=== PATIENT | female | born 1935 | race Caucasian/White ===

== ENCOUNTER 2017-10-21 10:52 | Day surgery (SDC) | payer MEDICARE, OTHER ==
[~2017-10-21 10:52] MED LIST: CYCLOPENTOLATE 0.2%/PHENYLEPHRINE 1% OPH SOLN 2 ML OD PRN; MIDAZOLAM 2 MG/2 ML INJ ONE; TROPICAMIDE 1% OPH SOLN 3 ML OD PRN
[2017-10-21] MEDS: MOXIFLOXACIN HCL 0.5% OPH SOLN 3 ML OD PRN ×4 (11:15→12:08)
[2017-10-21] MEDS: TETRACAINE HCL 0.5% OPH SOLN 2 ML OD PRN ×3 (11:15→11:49)
[2017-10-21] MEDS ORDERED: DIPHENHYDRAMINE HCL 50 MG/ML VIAL ONE (11:33)
[2017-10-21] MEDS ORDERED: METHYLPREDNISOLONE INJ 125 MG/2 ML SDV ONE (11:33)
[2017-10-21] MEDS ORDERED: MIDAZOLAM 2 MG/2 ML INJ ONE (11:34)
[2017-10-21] MEDS ORDERED: FENTANYL CITRATE INJ/PF 100 MCG/2 ML AMPUL ONE (11:34)
[2017-10-21] MEDS: BUPIVACAINE HCL 0.75% INJ/PF (7.5 MG/1 ML) 10 ML SDV OD PRN ×2 (11:40)
[2017-10-21] MEDS: LIDOCAINE 4% INJ/PF (40 MG/ML) 5 ML AMPUL OD PRN ×2 (11:40)
[2017-10-21] MEDS: EPINEPHRINE INJ/PF 1 MG/1 ML AMPULE ONE ×2 (11:54)
[2017-10-21] MEDS: LIDOCAINE 1% INJ-PF (10 MG/ML) 30 ML SDV ONE ×2 (11:54)
[2017-10-21] MEDS: CHONDR SU A NA/HYALUR INTRAOC KIT (SURGICARE) ONE ×2 (11:54)
--- NOTE | 2017-10-21 12:23 | SURGICARE DISCHARGE SUMMARY E ---
[facility]urg[facility]are Discharge Summary NAME: MADAY NOLASCO AGE: 82Y ADMITTED: 10/21/2017 DISCHARGED: 10/21/2017 ADMISSION DIAGNOSIS: CATARACT, RIGHT EYE. DISCHARGE DIAGNOSIS: CATARACT, RIGHT EYE. HOSPITAL COURSE: The patient is an 82-year-old lady who underwent uneventful cataract extraction with intraocular lens implant, right eye, on 10/21/2017. She will be discharged to home. DISCHARGE INSTRUCTIONS: She is instructed to resume preoperative medications; to take Tylenol as needed for discomfort; to keep her eye shielded; to use Vigamox, Acuvail, and Durezol at 3:00 p.m. and 8:00 p.m.; and to follow up in my office in 1 day. DICTATING PHYSICIAN: JULIANE MAZARIEGOS M.D. [id number] PHY#: [id number] ID: [id number] JOB#: [id number] ACCT: [id number] cc:JULIANE MAZARIEGOS M.D. >
--- NOTE | 2017-10-21 12:23 | SURGICARE OPERATIVE REPORT E ---
[facility] Oper[facility] NAME: MADAY NOLASCO AGE: 82Y DATE OF SURGERY: 10/21/2017 ROOM: PREOPERATIVE DIAGNOSIS: CATARACT, RIGHT EYE. POSTOPERATIVE DIAGNOSIS: CATARACT, RIGHT EYE. PROCEDURE PERFORMED: PHACOEMULSIFICATION WITH POSTERIOR CHAMBER INTRAOCULAR LENS, RIGHT EYE. SURGEON: JULIANE MAZARIEGOS M.D. ANESTHESIA: TOPICAL W/MAC. DESCRIPTION OF PROCEDURE: The patient was brought to the operating room and placed on the operative table. Following tetracaine drops, topical anesthesia was administered. This consisted of instrument wipe pledgets soaked in a solution of 4% Xylocaine mixed with 0.75% Marcaine in a 1:2 ratio. A 2 x 1 cm pledget was placed in the superior fornix. A 1 x 1 cm pledget was placed in the inferior fornix. The eye was patched shut for 5 minutes. The patch was removed. The eye was sterilely prepped and draped in the usual manner. Lid speculum was placed in the eye. The pledgets were removed, 4-0 black silk sutures were placed around the superior and the inferior rectus muscles to be used as traction. A conjunctival peritomy was made at the 10 o'clock position. Hemostasis was obtained with bipolar cautery. A posterior limbal groove was created using a crescent knife and dissected anteriorly towards the cornea. A sharp point blade was used to create a paracentesis site at the 2 o'clock position. A 2.4 mm keratome was used to enter the anterior chamber through the groove. Viscoelastic was injected into the anterior chamber. An anterior capsulotomy was performed using Utrata forceps in a capsulorrhexis fashion. Hydrodissection and hydrodelineation were performed. Phacoemulsification was performed in bvlukd-yze-hkzvvty technique. A total of 1 minute of total phaco time was used. Following this, the I/A unit was used to remove residual cortex. Viscoelastic was injected into the capsular bag. Intraocular lens Model [id number], 20.5 diopters, serial number [id number], was placed in the capsular bag. The I/A unit was used to remove residual viscoelastic. The wound was seen to be watertight under high and low pressure, and no sutures were placed. The intraocular lens was well centered. The pressure was adjusted in the eye to normal pressure. The 4-0 black silk sutures and lid speculum were removed. The eye was shielded. No Besivance was used. A drop of Vigamox and Durezol were placed in the eye at the end of the surgery. The patient tolerated the procedure well and was sent to the recovery room in good condition. DICTATING PHYSICIAN: JULIANE MAZARIEGOS M.D. [id number] PHY#: [id number] ID: [id number] JOB#: [id number] ACCT: [id number] cc:JULIANE MAZARIEGOS M.D. >
== END 2017-10-21 13:12 | disposition home or self-care (01) ==
LOC: SC 10:52
PROVIDERS: ATTEND Ophthalmology
PROC: 08RJ3JZ Replacement of Right Lens with Synthetic Substitute, Percutaneous Approach (ICD-10-PCS; principal; 2017-10-21 12:30)
DX: H25.811 Combined forms of age-related cataract, right eye (principal); H10.213 Acute toxic conjunctivitis, bilateral; I10 Essential (primary) hypertension; Z79.899 Other long term (current) drug therapy; Z88.0 Allergy status to penicillin
CPT/HCPCS: 66984; V2632; J2250; J3490 ×4; J1200; J0171; J3010; J2930; 142

== ENCOUNTER 2018-05-26 11:23 | Inpatient (IN) | payer MEDICARE, OTHER ==
[2018-05-26] MEDS ORDERED: ONDANSETRON HCL INJ/PF 4 MG/2 ML SDV IV ONE ×2 (11:38→15:21)
[2018-05-26] MEDS ORDERED: FENTANYL CITRATE INJ/PF 100 MCG/2 ML AMPUL IV ONE ×2 (11:38→12:43)
[2018-05-26] MEDS: MORPHINE SULFATE 10 MG/ML INJ IV SCH ×4 (11:55→22:21)
[2018-05-26 12:42] LABS: ABSOLUTE LYMPHOCYTES (AUTO) 0.6 10^3/uL (0.5-4.7); ABSOLUTE MONOCYTES (AUTO) 0.3 10^3/uL (0.1-1.4); ABSOLUTE NEUT (AUTO) 3.7 10^3/uL (1.7-8.2); BASOPHILS % (AUTO) 0.8 % (0-2); HEMATOCRIT 36.4 % (36.0-47.0); HEMOGLOBIN 12.7 g/dL (12.0-15.5); LYMPHOCYTES % (AUTO) 12.9 % (13-45); MEAN CORPUSCULAR HEMOGLOBIN 31.9 pg (27.0-33.4); MEAN CORPUSCULAR VOLUME 91 fl (80-97); MONOCYTES % (AUTO) 5.8 % (3-13); PLATELET COUNT 271 10^3/uL (150-450); RED BLOOD COUNT 3.99 10^6/uL (3.72-5.28); RED CELL DISTRIBUTION WIDTH 12.5 % (11.5-14.0); SEGMENTED NEUTROPHILS % (AUTO) 79.5 % (42-78); TOTAL CELLS COUNTED % (AUTO) 100 %; WHITE BLOOD COUNT 4.7 10^3/uL (4.0-10.5)
--- NOTE | 2018-05-26 12:49 | ER Document Report ---
ED Extremity Problem, Lower <RENETTA BARTLETT - Last Filed: 05/26/18 13:18> - General Mode of Arrival: Medic Information source: Patient TRAVEL OUTSIDE OF THE [place] IN LAST 30 DAYS: No <VAZQUEZ GONZALEZ - Last Filed: 05/29/18 22:34> - General Chief Complaint: Fall Injury Stated Complaint: FALL/RIGHT HIP PAIN Time Seen by Provider: 05/26/18 11:32 Notes: 83-year-old female that presents to the emergency department today after a fall that occurred prior to arrival. Patient states she tripped over her shoe and fell on her driveway. Patient was unable to get up and had to be carried inside by a bystander that saw her as he was driving by. Patient's right lower extremity is shortened and internally rotated. (VAZQUEZ GONZALEZ) - Related Data Allergies/Adverse Reactions: Penicillins Allergy (Verified 10/17/17 11:14) Generalized rash Past Medical History - General Information source: Patient - Social History Smoking Status: Never Smoker Cigarette use (# per day): No Chew tobacco use (# tins/day): No Frequency of alcohol use: None Drug Abuse: None Lives with: Family Family History: Reviewed & Not Pertinent Patient has suicidal ideation: No Patient has homicidal ideation: No - Past Medical History Cardiac Medical History: Reports: Hx Hypertension Musculoskeletal Medical History: Reports Hx Arthritis - left hip Past Surgical History: Reports: Hx Hysterectomy <VAZQUEZ GONZALEZ - Last Filed: 05/29/18 22:34> Review of Systems - Review of Systems Constitutional: No symptoms reported EENT: No symptoms reported Cardiovascular: No symptoms reported Respiratory: No symptoms reported Gastrointestinal: No symptoms reported Genitourinary: No symptoms reported Female Genitourinary: No symptoms reported Musculoskeletal: See HPI, Joint pain - right hip pain Skin: No symptoms reported Hematologic/Lymphatic: No symptoms reported Neurological/Psychological: No symptoms reported -: Yes All other systems reviewed and negative <VAZQUEZ GONZALEZ - Last Filed: 05/29/18 22:34> Physical Exam <RENETTA BARTLETT - Last Filed: 05/26/18 13:18> <VAZQUEZ GONZALEZ - Last Filed: 05/29/18 22:34> - Vital signs Vitals: Resp Pulse Ox 20 93 05/26/18 11:29 05/26/18 11:29 - Notes Notes: Physical Exam: General: Alert, appears well. HEENT: Normocephalic. Atraumatic. PERRL. Extraocular movements intact. Oropharynx clear. Neck: Supple. Non-tender. Respiratory: No respiratory distress. Clear and equal breath sounds bilaterally. Cardiovascular: Regular rate and rhythm. Abdominal: Normal Inspection. Non-tender. No distension. Normal Bowel Sounds. Back: Non-tender. No deformity or step off. Extremities: Upper extremities: Normal inspection. Normal ROM. Lower extremities: Right lower extremity is shortened and internally rotated. Exquisite tenderness to palpation of right hip. Pelvis is stable. Neurological: Normal cognition. AAOx4. Normal speech. Psychological: Normal affect. Normal Mood. Skin: Warm. Dry. Normal color. (VAZQUEZ GONZALEZ) Course - Laboratory Result Diagrams: 05/26/18 12:14 05/26/18 12:14 - Diagnostic Test Radiology reviewed: Image reviewed, Reports reviewed - Subcapital fracture right hip - EKG Interpretation by Ri EKG shows normal: Sinus rhythm, [place], Intervals, QRS Complexes, ST-T Waves Rate: Normal - 68 Rhythm: NSR <RENETTA BARTLETT - Last Filed: 05/26/18 13:18> - Laboratory Result Diagrams: 05/29/18 08:46 05/28/18 05:44 <VAZQUEZ GONZALEZ - Last Filed: 05/29/18 22:34> - Vital Signs Vital signs: Temp Pulse Resp BP Pulse Ox 98.2 F 85 16 158/71 H 97 05/29/18 20:00 05/29/18 20:00 05/29/18 20:00 05/29/18 20:00 05/29/18 20:00 - Laboratory Laboratory results interpreted by pa: 05/26/18 05/26/18 12:14 12:14 Seg Neutrophils % 79.5 H Lymphocytes % 12.9 L Sodium 131.7 L Chloride 94 L Discharge - Discharge Admitting Provider: Dr. Mancia Unit Admitted: Medical Floor <RENETTA BARTLETT - Last Filed: 05/26/18 13:18> <VAZQUEZ GONZALEZ - Last Filed: 05/29/18 22:34> - Discharge Clinical Impression: Closed right hip fracture Qualifiers: Encounter type: initial encounter Qualified Code(s): S72.001A - Fracture of unspecified part of neck of right femur, initial encounter for closed fracture Condition: Stable Disposition: ADMITTED INPATIENT Scribe Attestation: 05/26/18 13:20 I personally performed the services described in the documentation, reviewed and edited the documentation which was dictated to the scribe in my presence, and it accurately records my words and actions. (RENETTA BARTLETT) Scribe Documentation - Scribe Written by Annie:: Annie Hernandez, 05/26/2018 1415 acting as scribe for :: Alli <VAZQUEZ GONZALEZ - Last Filed: 05/29/18 22:34>
--- NOTE | 2018-05-26 12:52 | RADIOLOGY REPORT (SQ) ---
EXAM DESCRIPTION: HIP RIGHT AP/LATERAL COMPLETED DATE/TIME: 05/26/2018 12:41 pm REASON FOR STUDY: Fall, right hip pain COMPARISON: None. NUMBER OF VIEWS: Two views. TECHNIQUE: AP pelvis and additional frog-leg view of the right hip. LIMITATIONS: Radiopaque artifact from belt buckle over the left hip FINDINGS: MINERALIZATION: Osteoporotic RIGHT HIP: Acute subcapital right femoral neck fracture with varus angulation. LEFT HIP: Artifact from bowel buckle over the left hip. No gross acute fracture PUBIS AND ISCHIUM: No fracture. PELVIS: No fracture. SACRUM: No fracture or dislocation. No worrisome bone lesions. LOWER LUMBAR SPINE: L5-S1 disc space loss of height with sclerosis right L5-S1 facet joint SOFT TISSUES: No findings. OTHER: No other significant finding. IMPRESSION: Acute subcapital femoral neck fracture right hip, with varus angulation TECHNICAL DOCUMENTATION: JOB ID: [id number] [employer]- All Rights Reserved Reading location - IP/workstation name: [email or web address]
--- NOTE | 2018-05-26 12:52 | EKG REPORT ---
SEVERITY:- NORMAL ECG - SINUS RHYTHM : Confirmed by: Dakota Carroll MD 26-May-2018 12:51:45
[2018-05-26] MEDS ORDERED: HYDROMORPHONE HCL INJ/PF 2 MG/ML AMPULE IV ONE ×2 (13:11→15:20)
[2018-05-26] MEDS ORDERED: NORMAL SALINE 1000 ML 1,000 ML IV ONE (13:12)
[2018-05-26 13:17] LABS: ALANINE AMINOTRANSFERASE 21 U/L (9-52); ALBUMIN 3.8 g/dL (3.5-5.0); ALKALINE PHOSPHATASE 59 U/L (38-126); ANION GAP 11 (5-19); ASPARTATE AMINO TRANSFERASE 33 U/L (14-36); BILIRUBIN,DIRECT 0.3 mg/dL (0.0-0.4); BILIRUBIN,TOTAL 0.7 mg/dL (0.2-1.3); BLOOD UREA NITROGEN 12 mg/dL (7-20); CALCIUM 9.2 mg/dL (8.4-10.2); CARBON DIOXIDE 27 mmol/L (22-30); CHLORIDE 94 mmol/L (98-107); CREATINE KINASE 64 U/L (30-135); GLUCOSE 101 mg/dL (75-110); POTASSIUM 3.8 mmol/L (3.6-5.0); SODIUM 131.7 mmol/L (137-145); TOTAL PROTEIN 7.1 g/dL (6.3-8.2)
[2018-05-26 13:20] LABS: INTERNATIONAL RATION (INR) 0.96; PROTHROMBIN TIME 13.3 SEC (11.4-15.4)
[2018-05-26 14:09] LABS: APPEARANCE,URINE CLEAR; BILIRUBIN,URINE NEGATIVE (NEGATIVE); COLOR,URINE YELLOW; GLUCOSE, URINE NEGATIVE (NEGATIVE); KETONES,URINE TRACE mg/dL (NEGATIVE); LEUKOCYTE ESTERASE,URINE NEGATIVE (NEGATIVE); NITRITE,URINE NEGATIVE (NEGATIVE); PROTEIN,URINE NEGATIVE (NEGATIVE); URINE SPECIFIC GRAVITY 1.013
--- NOTE | 2018-05-26 17:18 | PDOC H&P ---
History of Present Illness Admission Date/PCP: 05/26/18 13:20 IVANA ORTEGA MD History of Present Illness: MADAY NOLASCO is a 83 year old female 83-year-old white female with noncontributory as past medical history who slipped and fell at home was unable to weight-bear on the right lower extremity. She was brought to the emergency room where a displaced right femoral neck fracture was diagnosed. She is admitted to the orthopedic service for fracture management. Past Medical History Cardiac Medical History: Reports: Hypertension Denies: Myocardial Infarction Pulmonary Medical History: Denies: Asthma Neurological Medical History: Denies: Seizures GI Medical History: Denies: Hepatitis, Hiatal Hernia Musculoskeltal Medical History: Reports: Arthritis - left hip Psychiatric Medical History: Denies: Depression Hematology: Denies: Anemia, Sickle Cell Disease Past Surgical History Past Surgical History: Reports: Hysterectomy Denies: Amputation, Mastectomy, Pacemaker Social History Information Source: Patient, [facility], [facility] Records Lives with: Family Smoking Status: Former Smoker Frequency of Alcohol Use: None Hx Recreational Drug Use: No Drugs: None Hx Prescription Drug Abuse: No - Advance Directive Resuscitation Status: Full Code Family History Parental Family History Reviewed: No Children Family History Reviewed: No Sibling(s) Family History Reviewed.: No Medication/Allergy Home Medications: Glucosam/Chond/Hyalu/Cf Borate [Move Free Joint Health Tablet] 1 each PO DAILY 05/26/18 Valsartan/Hydrochlorothiazide [Valsartan-Hctz 80-12.5 mg Tab] 1 each PO QAM 01/07 Vit C/Vit E/Lutein/Min/[place]-3 [Ocuvite Softgel] 1 each PO DAILY 05/26/18 Allergies/Adverse Reactions: Penicillins Allergy (Verified 10/17/17 11:14) Generalized rash Review of Systems All systems: as per PMH Physical Exam Vital Signs: Temp Pulse Resp BP Pulse Ox 36.5 C 86 12 149/63 H 95 05/26/18 15:56 05/26/18 15:56 05/26/18 15:56 05/26/18 15:56 05/26/18 15:56 Intake & Output 05/25/18 05/26/18 05/27/18 06:59 06:59 06:59 Intake Total 1000 Balance 1000 Weight 64.4 kg Physical Exam: Patient is an elderly white female lying in a hospital bed accompanied by 2 daughters. She is alert and oriented, conversant and appropriate. General appearance: PRESENT: no acute distress, mild distress Head exam: PRESENT: normocephalic Respiratory exam: PRESENT: unlabored Cardiovascular exam: PRESENT: RRR Pulses: PRESENT: +1 pedal pulses bilateral Rectal exam: PRESENT: deferred Extremities exam: PRESENT: other - Right lower extremity is shortened and flexed. Distal neurovascular examination is intact. Passive range of motion is not assessed. Neurological exam: PRESENT: alert, awake, oriented to person, oriented to place , oriented to time, oriented to situation. ABSENT: motor sensory deficit Psychiatric exam: PRESENT: appropriate affect, normal mood. ABSENT: homicidal ideation, suicidal ideation Skin exam: PRESENT: dry, intact, warm. ABSENT: cyanosis, rash Results Laboratory Results: 05/26/18 13:27 Urine Color YELLOW Urine Appearance CLEAR Urine pH 7.0 Ur Specific [place] 1.013 Urine Protein NEGATIVE Urine Glucose (UA) NEGATIVE Urine Ketones TRACE H Urine Blood NEGATIVE Urine Nitrite NEGATIVE Ur Leukocyte Esterase NEGATIVE Urine WBC (Auto) 1 Urine RBC (Auto) 0 Impressions: Hip/Pelvis X-Ray 05/26/18 11:38 IMPRESSION: Acute subcapital femoral neck fracture right hip, with varus angulation Status: Imported from PACS Assessment & Plan - Diagnosis (1) Closed right hip fracture Qualifiers: Encounter type: initial encounter Qualified Code(s): S72.001A - Fracture of unspecified part of neck of right femur, initial encounter for closed fracture Is this a current diagnosis for this admission?: Yes Plan: 83-year-old white female with noncontributory past medical history who is fallen and has sustained a displaced right femoral neck fracture. Patient was best served with a right proximal femoral hemiarthroplasty. Plan to proceed with this tomorrow. Patient and her daughters are aware that there are risks and benefits of surgery. The risks include infection, arthrofibrosis, deep venous thrombosis, neurovascular injury, leg length inequality, and dislocation. - Time Time Spent: 50 to 70 Minutes Anticipated discharge: Home with Homehealth Within: Other
[2018-05-26] MEDS ORDERED: OXYCODONE HCL IR 5 MG TABLET PO PRN (17:48)
[2018-05-26] MEDS ORDERED: ONDANSETRON 4 MG TAB.RAPDIS PO PRN (17:48)
[2018-05-27] MEDS ORDERED: RINGERS SOLUTION,LACTATED 1,000 ML IV PRN (00:01)
[2018-05-27] MEDS: MORPHINE SULFATE 10 MG/ML INJ IV SCH ×10 (02:33→22:41)
[2018-05-27] MEDS ORDERED: VANCOMYCIN HCL 1,000 MG in DEXTROSE 5%-WATER 250 ML IV PRN (05:00)
[2018-05-27] MEDS ORDERED: TRANEXAMIC ACID INJ/PF 1,000 MG/10 ML SDV IV PRN (05:00)
[2018-05-27] MEDS ORDERED: BUPIVACAINE INJ/PF LIPOSOME/PF 266 MG/20 ML SDV ONE ×2 (08:09→09:06)
[2018-05-27] MEDS ORDERED: THROMBIN (BOVINE) 5000 UNIT EPITAXIS KIT ONE (08:09)
[2018-05-27] MEDS ORDERED: THROMBIN (BOVINE) TOPICAL 20000 UNIT VIAL ONE (08:09)
[2018-05-27] MEDS ORDERED: BUPIVACAINE HCL/DEX-WATER/PF 15 MG/2 ML AMPULE ONE (08:44)
[2018-05-27] MEDS ORDERED: MIDAZOLAM 2 MG/2 ML INJ ONE ×2 (08:44→10:35)
[2018-05-27] MEDS ORDERED: EPHEDRINE SULFATE INJ 50 MG/1 ML AMPULE ONE (08:45)
[2018-05-27] MEDS ORDERED: PROPOFOL INJ 200 MG/20 ML VIAL IV ONE (08:45)
[2018-05-27] MEDS ORDERED: ONDANSETRON HCL INJ/PF 4 MG/2 ML SDV ONE (08:45)
[2018-05-27] MEDS ORDERED: TRANEXAMIC ACID INJ/PF 1,000 MG/10 ML SDV IV ONE ×2 (09:26→12:30)
[2018-05-27] MEDS ORDERED: DIPHENHYDRAMINE HCL 50 MG/ML VIAL IV PRN ×2 (10:04→10:21)
[2018-05-27] MEDS ORDERED: PROMETHAZINE HCL INJ 25 MG/1 ML VIAL IV PRN (10:04)
[2018-05-27] MEDS ORDERED: FENTANYL CITRATE INJ/PF 100 MCG/2 ML AMPUL IV PRN ×3 (10:04)
[2018-05-27] MEDS ORDERED: ACETAMINOPHEN 325 MG TABLET PO PRN (10:21)
[2018-05-27] MEDS ORDERED: MAG HYDROX/AL HYDROX/SIMETH SUSP 30 ML UDCUP PO PRN (10:21)
[2018-05-27] MEDS ORDERED: MORPHINE SULFATE 10 MG/ML INJ IV PRN ×3 (10:21)
[2018-05-27] MEDS ORDERED: OXYCODONE HCL IR 5 MG TABLET PO PRN (10:21)
[2018-05-27] MEDS ORDERED: MORPHINE SULFATE 10 MG/ML INJ IM PRN (10:21)
[2018-05-27] MEDS ORDERED: ONDANSETRON 4 MG TAB.RAPDIS PO PRN (10:21)
[2018-05-27] MEDS ORDERED: ZOLPIDEM TARTRATE 5 MG TABLET PO PRN (10:21)
--- NOTE | 2018-05-27 10:21 | Operative Report ---
Operative Report DATE OF SURGERY: 05/27/18 PREOPERATIVE DIAGNOSIS: Right femoral neck fracture OPERATION: Right proximal femoral hemiarthroplasty SURGEON: ABIGAIL ESPOSITO ANESTHESIA: Spinal TISSUE REMOVED OR ALTERED: Femoral head to pathology ESTIMATED BLOOD LOSS: 50 PROCEDURE: With the patient in a left lateral decubitus position the right lower extremity hindquarter prepped and draped in a sterile fashion. A curvilinear incision made over the greater trochanter a posterior approach the hip was taken. The femur was retracted anteriorly and underlying femoral neck and head are retrieved using a corkscrew. The femoral head was measured and noted to be 45 millimeters. Attention is now turned to the femur. Access is gained to the femoral canal using a box osteotome to the piriformis fossa. The femur is then prepared using a series of tapered broaches until a number 5 [place] Accolade 2 broach is seated. A trial reduction was now performed using a 45 head and standard neck. Leg length was restored and there is excellent anterior posterior stability. A decision was made to proceed with this construct. All trial implants were removed. The final number 5 femoral stem is impacted into the canal. The standard neck is impacted onto the trunnion. Final unipolar head 45 millimeters is impacted onto the neck. The hip was reduced. The wound is copiously irrigated with pulsed lavage. A subsequent closed in layers using Vicryl and jose juan. A sterile dressing is applied. The patient was returned to the recovery room in satisfactory condition.
[2018-05-27] MEDS ORDERED: KETAMINE HCL INJ 500 MG/10 ML VIAL ONE (10:35)
--- NOTE | 2018-05-27 11:10 | RADIOLOGY REPORT (SQ) ---
EXAM DESCRIPTION: PELVIS AP COMPLETED DATE/TIME: 05/27/2018 10:52 am REASON FOR STUDY: Post Op Long Cassette in PACU COMPARISON: None. NUMBER OF VIEWS: One view TECHNIQUE: Digital radiographic images of the pelvis post-procedure LIMITATIONS: None. FINDINGS: BONES: No worrisome or unexpected findings post-procedure. DEVICE: Right total hip arthroplasty. SOFT TISSUES: No worrisome findings. Expected postoperative soft tissue changes. IMPRESSION: SATISFACTORY POSTOPERATIVE PELVIS. TECHNICAL DOCUMENTATION: JOB ID: [id number] [employer]- All Rights Reserved Reading location - IP/workstation name: [email or web address]
[2018-05-27] MEDS ORDERED: IBUPROFEN 800 MG in NORMAL SALINE 250 ML IV SCH (14:00)
[2018-05-27] MEDS: IBUPROFEN 800 MG in DEXTROSE 5%-WATER 250 ML IV SCH ×2 (14:49→22:35)
[2018-05-27] MEDS: RINGERS SOLUTION,LACTATED 1,000 ML IV PRN (16:50)
[2018-05-27] MEDS: SENNOSIDES/DOCUSATE 8.6-50 MG 1 EACH TABLET PO SCH (17:16)
[2018-05-27] MEDS ORDERED: VANCOMYCIN HCL 1,000 MG in DEXTROSE 5%-WATER 250 ML IV ONE (22:00)
[2018-05-27] MEDS ORDERED: OXYCODONE HCL SR 10 MG TABLET PO SCH (22:00)
[2018-05-28] MEDS: MORPHINE SULFATE 10 MG/ML INJ IV SCH ×11 (00:32→22:21)
[2018-05-28 09:23] LABS: HEMATOCRIT 30.3 % (36.0-47.0); HEMOGLOBIN 10.8 g/dL (12.0-15.5); MEAN CORPUSCULAR HEMOGLOBIN 32.9 pg (27.0-33.4); MEAN CORPUSCULAR HGB CONC 35.7 g/dL (32.0-36.0); MEAN CORPUSCULAR VOLUME 92 fl (80-97); PLATELET COUNT 154 10^3/uL (150-450); RED BLOOD COUNT 3.29 10^6/uL (3.72-5.28); RED CELL DISTRIBUTION WIDTH 12.5 % (11.5-14.0)
[2018-05-28 09:29] LABS: ANION GAP 7 (5-19); BLOOD UREA NITROGEN 18 mg/dL (7-20); CALCIUM 8.5 mg/dL (8.4-10.2); CARBON DIOXIDE 26 mmol/L (22-30); CHLORIDE 94 mmol/L (98-107); GLUCOSE 100 mg/dL (75-110); POTASSIUM 3.9 mmol/L (3.6-5.0); SODIUM 127.2 mmol/L (137-145)
[2018-05-28] MEDS: LANSOPRAZOLE 30 MG TAB.RAP.DR PO SCH (09:56)
[2018-05-28] MEDS: IBUPROFEN 800 MG in DEXTROSE 5%-WATER 250 ML IV SCH ×3 (09:56→21:12)
[2018-05-28] MEDS: VALSARTAN 80 MG TABLET PO SCH (11:12)
[2018-05-28] MEDS: ONDANSETRON HCL INJ/PF 4 MG/2 ML SDV IV PRN ×2 (11:12→17:58)
[2018-05-28] MEDS: HYDROCHLOROTHIAZIDE 12.5 MG TABLET PO SCH (11:12)
[2018-05-28] MEDS: SENNOSIDES/DOCUSATE 8.6-50 MG 1 EACH TABLET PO SCH ×2 (11:12→18:01)
[2018-05-28] MEDS: ASPIRIN 81 MG TABLET, ENT COATED PO SCH (11:13)
[2018-05-28] MEDS: PRENATAL VITAMIN W DHA CAPSULE PO SCH (11:13)
[2018-05-28] MEDS: RINGERS SOLUTION,LACTATED 1,000 ML IV PRN ×2 (14:12→21:12)
[2018-05-29] MEDS: MORPHINE SULFATE 10 MG/ML INJ IV SCH ×9 (01:43→22:00)
[2018-05-29] MEDS: RINGERS SOLUTION,LACTATED 1,000 ML IV PRN ×2 (06:23→19:16)
[2018-05-29] MEDS: IBUPROFEN 800 MG in DEXTROSE 5%-WATER 250 ML IV SCH (06:23)
[2018-05-29] MEDS: LANSOPRAZOLE 30 MG TAB.RAP.DR PO SCH (06:26)
--- NOTE | 2018-05-29 06:29 | PDOC PROGRESS REPORT ---
Subjective Progress Note for:: 05/29/18 Reason For Visit: RIGHT FEMORAL NECK FRACTURE 83-year-old white female now postop day 2 from right proximal femoral hemiarthroplasty. Last night's notable for urinary retention and the initiation of in and out urinary catheterization. Physical Exam Vital Signs: Temp Pulse Resp BP Pulse Ox 37.0 C 92 17 142/57 H 91 L 05/28/18 19:50 05/28/18 19:50 05/28/18 19:50 05/28/18 19:50 05/28/18 19:50 Intake & Output 05/27/18 05/28/18 05/29/18 06:59 06:59 06:59 Intake Total 2000 4034 3930 Output Total 200 3250 275 Balance 3778 944 8434 Weight 65.3 kg 69.5 kg General appearance: PRESENT: no acute distress, mild distress Head exam: PRESENT: normocephalic Respiratory exam: PRESENT: other - On nasal prong oxygen Cardiovascular exam: PRESENT: RRR Pulses: PRESENT: +1 pedal pulses bilateral Vascular exam: PRESENT: normal capillary refill GI/Abdominal exam: PRESENT: soft Rectal exam: PRESENT: deferred Extremities exam: PRESENT: other - Right hip dressing clean dry and intact. Leg lengths are equal. Distal neurovascular examination is intact. Neurological exam: PRESENT: alert, awake, oriented to person, oriented to place , oriented to time, oriented to situation. ABSENT: motor sensory deficit Psychiatric exam: PRESENT: appropriate affect, normal mood. ABSENT: homicidal ideation, suicidal ideation Skin exam: PRESENT: dry, intact, warm. ABSENT: cyanosis, rash Results Laboratory Results: 05/28/18 05:44 05/28/18 05:44 05/28/18 05/28/18 05:44 05:44 WBC 9.0 RBC 3.29 L Hgb 10.8 L Hct 30.3 L MCV 92 MCH 32.9 MCHC 35.7 RDW 12.5 Plt Count 154 Sodium 127.2 L Potassium 3.9 Chloride 94 L Carbon Dioxide 26 Anion Gap 7 BUN 18 Creatinine 0.79 Est GFR ( Amer) > 60 Est GFR (Non-Af Amer) > 60 Glucose 100 Calcium 8.5 Impressions: Hip/Pelvis X-Ray 05/26/18 11:38 IMPRESSION: Acute subcapital femoral neck fracture right hip, with varus angulation Pelvis X-Ray 05/27/18 10:23 IMPRESSION: SATISFACTORY POSTOPERATIVE PELVIS. Status: Imported from PACS Assessment & Plan - Diagnosis (1) Closed right hip fracture Qualifiers: Encounter type: initial encounter Qualified Code(s): S72.001A - Fracture of unspecified part of neck of right femur, initial encounter for closed fracture Is this a current diagnosis for this admission?: Yes Plan: Patient progressing with physical therapy ambulating 60 feet yesterday. (2) Urinary retention with incomplete bladder emptying Is this a current diagnosis for this admission?: Yes Plan: Patient developed urinary retention yesterday. She had an indwelling Ordaz catheter prior to that time. This may represent an underlying urinary tract infection. Urine sent for urinalysis. - Time Time Spent with patient: 15-24 minutes Anticipated discharge: Home with Homehealth Within: within 24 hours
[2018-05-29 09:19] LABS: HEMATOCRIT 29.1 % (36.0-47.0); HEMOGLOBIN 10.4 g/dL (12.0-15.5); MEAN CORPUSCULAR HEMOGLOBIN 32.8 pg (27.0-33.4); MEAN CORPUSCULAR HGB CONC 35.8 g/dL (32.0-36.0); MEAN CORPUSCULAR VOLUME 92 fl (80-97); PLATELET COUNT 155 10^3/uL (150-450); RED BLOOD COUNT 3.18 10^6/uL (3.72-5.28); RED CELL DISTRIBUTION WIDTH 12.2 % (11.5-14.0); WHITE BLOOD COUNT 7.4 10^3/uL (4.0-10.5)
[2018-05-29 09:56] LABS: APPEARANCE,URINE CLEAR; BILIRUBIN,URINE NEGATIVE (NEGATIVE); COLOR,URINE YELLOW; GLUCOSE, URINE NEGATIVE (NEGATIVE); KETONES,URINE NEGATIVE (NEGATIVE); LEUKOCYTE ESTERASE,URINE NEGATIVE (NEGATIVE); NITRITE,URINE NEGATIVE (NEGATIVE); PROTEIN,URINE NEGATIVE (NEGATIVE); URINE SPECIFIC GRAVITY 1.006; UROBILINOGEN,URINE NEGATIVE mg/dL (<2.0)
[2018-05-29] MEDS: VALSARTAN 80 MG TABLET PO SCH (10:42)
[2018-05-29] MEDS: ASPIRIN 81 MG TABLET, ENT COATED PO SCH (10:43)
[2018-05-29] MEDS: SENNOSIDES/DOCUSATE 8.6-50 MG 1 EACH TABLET PO SCH ×2 (10:44→19:14)
[2018-05-29] MEDS: PRENATAL VITAMIN W DHA CAPSULE PO SCH (10:44)
[2018-05-29] MEDS: HYDROCHLOROTHIAZIDE 12.5 MG TABLET PO SCH ×2 (10:44→10:52)
[2018-05-30] MEDS: MORPHINE SULFATE 10 MG/ML INJ IV SCH ×5 (02:00→09:27)
[2018-05-30] MEDS: LANSOPRAZOLE 30 MG TAB.RAP.DR PO SCH (06:03)
[2018-05-30 07:10] LABS: HEMATOCRIT 28.2 % (36.0-47.0); HEMOGLOBIN 10.1 g/dL (12.0-15.5); MEAN CORPUSCULAR HEMOGLOBIN 32.6 pg (27.0-33.4); MEAN CORPUSCULAR HGB CONC 35.8 g/dL (32.0-36.0); MEAN CORPUSCULAR VOLUME 91 fl (80-97); PLATELET COUNT 195 10^3/uL (150-450); RED BLOOD COUNT 3.09 10^6/uL (3.72-5.28); RED CELL DISTRIBUTION WIDTH 12.3 % (11.5-14.0); WHITE BLOOD COUNT 6.1 10^3/uL (4.0-10.5)
--- NOTE | 2018-05-30 08:15 | PDOC DISCHARGE SUMMARY ---
General - Admit/Disc Date/PCP Admission Date/Primary Care Provider: 05/26/18 13:20 IVANA ORTEGA MD Discharge Date: 05/30/18 - Discharge Diagnosis (1) Closed right hip fracture Is this a current diagnosis for this admission?: Yes (2) Urinary retention with incomplete bladder emptying Is this a current diagnosis for this admission?: Yes - Additional Information Resuscitation Status: Full Code Discharge Diet: As Tolerated, Regular Discharge Activity: Balance Activity w/Rest, No Driving, No tub bath Home Medications: Glucosam/Chond/Hyalu/Cf Borate [Move Free Joint Health Tablet] 1 each PO DAILY 05/26/18 Valsartan/Hydrochlorothiazide [Valsartan-Hctz 80-12.5 mg Tab] 1 each PO QAM 01/07 Vit C/Vit E/Lutein/Min/[place]-3 [Ocuvite Softgel] 1 each PO DAILY 05/26/18 Aspirin [Ecotrin 81 mg EC Tablet] 81 mg PO DAILY tabec 05/30/18 History of Present Illness History of Present Illness: Patient is an 83-year-old white female with a past medical history significant only for hypertension who presents status post a fall and is diagnosed with a displaced right femoral neck fracture. She is admitted to the orthopedic service for fracture management. Hospital Course Hospital Course: Patient was taken to the operating room under close uncomplicated right hemiarthroplasty. She is returned to floor in satisfactory condition. She is mobilized with physical therapy and weightbearing as tolerated basis. She makes excellent progress in this regard. On postop day 2 there is issues with urinary retention and the patient started in and out cath every 6 as needed. This resolves to the patient subsequently voiding spontaneously. She is ambulating 80 feet. She is ready for discharge home with home health services and DME. Physical Exam Vital Signs: Temp Pulse Resp BP Pulse Ox 37.2 C 86 16 151/71 H 94 05/30/18 00:00 05/30/18 00:00 05/30/18 00:00 05/30/18 00:00 05/30/18 00:00 Intake & Output 05/29/18 05/30/18 05/31/18 06:59 06:59 06:59 Intake Total 4180 1621 Output Total 779 7970 Balance 3405 -829 Weight 69.9 kg 78.1 kg General appearance: PRESENT: no acute distress, mild distress Head exam: PRESENT: normocephalic Respiratory exam: PRESENT: unlabored Cardiovascular exam: PRESENT: RRR Pulses: PRESENT: +1 pedal pulses bilateral Vascular exam: PRESENT: normal capillary refill GI/Abdominal exam: PRESENT: soft Rectal exam: PRESENT: deferred Extremities exam: PRESENT: other - Right hip dressing with a small amount of old drainage. Leg lengths are equal. Distal neurovascular examination is intact. Neurological exam: PRESENT: alert, awake, oriented to person, oriented to place , oriented to time, oriented to situation. ABSENT: motor sensory deficit Psychiatric exam: PRESENT: appropriate affect, normal mood. ABSENT: homicidal ideation, suicidal ideation Skin exam: PRESENT: dry, intact, warm. ABSENT: cyanosis, rash Results Laboratory Results: 05/30/18 05:56 05/28/18 05:44 05/29/18 05/29/18 05/30/18 08:46 09:18 05:56 WBC 7.4 6.1 RBC 3.18 L 3.09 L Hgb 10.4 L 10.1 L Hct 29.1 L 28.2 L MCV 92 91 MCH 32.8 32.6 MCHC 35.8 35.8 RDW 12.2 12.3 Plt Count 155 195 Urine Color YELLOW Urine Appearance CLEAR Urine pH 5.0 Ur Specific [place] 1.006 Urine Protein NEGATIVE Urine Glucose (UA) NEGATIVE Urine Ketones NEGATIVE Urine Blood SMALL H Urine Nitrite NEGATIVE Ur Leukocyte Esterase NEGATIVE Urine WBC (Auto) 3 Urine RBC (Auto) 1 Impressions: Hip/Pelvis X-Ray 05/26/18 11:38 IMPRESSION: Acute subcapital femoral neck fracture right hip, with varus angulation Pelvis X-Ray 05/27/18 10:23 IMPRESSION: SATISFACTORY POSTOPERATIVE PELVIS. Status: Imported from PACS Qualifiers - * PATIENT BEING DISCHARGED WITH ANY OF THE FOLLOWING DIAGNOSIS: No VTE patient discharged on overlapping Therapy?: Yes Plan Discharge Plan: Patient be discharged home with home health services and DME. Follow-up with Dr. Blanche Florez Cameron for surgery in 2 weeks for staple removal. Time Spent: Less than 30 Minutes
[2018-05-30 08:31] VITALS: BP 145/57
[2018-05-30] MEDS: PRENATAL VITAMIN W DHA CAPSULE PO SCH (09:25)
[2018-05-30] MEDS: SENNOSIDES/DOCUSATE 8.6-50 MG 1 EACH TABLET PO SCH (09:25)
[2018-05-30] MEDS: ASPIRIN 81 MG TABLET, ENT COATED PO SCH (09:25)
[2018-05-30] MEDS: HYDROCHLOROTHIAZIDE 12.5 MG TABLET PO SCH (09:26)
[2018-05-30] MEDS: VALSARTAN 80 MG TABLET PO SCH (09:26)
== END 2018-05-30 11:39 | disposition home health service (06) | DRG 470 ==
LOC: ER 11:23 → EH 13:20 → 4S 15:53
PROVIDERS: ADMIT Orthopaedic Surgery; ATTEND Orthopaedic Surgery
PROC: 0SRR0JA Replacement of Right Hip Joint, Femoral Surface with Synthetic Substitute, Uncemented, Open Approach (ICD-10-PCS; principal; 2018-05-27 11:15)
DX: S72.001A Fracture of unspecified part of neck of right femur, initial encounter for closed fracture (principal); W01.0XXA Fall on same level from slipping, tripping and stumbling without subsequent striking against object, initial encounter; Y93.89 Activity, other specified; Y92.008 Other place in unspecified non-institutional (private) residence as the place of occurrence of the external cause; Y99.9 Unspecified external cause status; R33.9 Retention of urine, unspecified; I10 Essential (primary) hypertension; M19.90 Unspecified osteoarthritis, unspecified site; Z79.82 Long term (current) use of aspirin; Z79.899 Other long term (current) drug therapy; Z88.0 Allergy status to penicillin; Z90.710 Acquired absence of both cervix and uterus
CPT/HCPCS: 01210; 36415; 72170; 80048; 80053; 81001; 82550; 84484; 85025; 85027; 85610; 88304; 88311; 93005; 93010; 94799; 96374; 96375; 96376; 99285; C1776; C9290; G8978-GP; G8979-GP; G8987-GO; G8988-GO; J1170; J1741; J2250; J2270; J2405; J2704; J3010; J3370; J3490; J7030; J7060; J7120; S0119

== ENCOUNTER 2019-12-27 08:40 | Inpatient (IN) | payer MEDICARE, OTHER ==
[2019-12-27] MEDS ORDERED: FENTANYL CITRATE INJ/PF 100 MCG/2 ML AMPUL IV ONE (08:56)
[2019-12-27 09:17] LABS: ABSOLUTE EOSINOPHILS # (AUTO) 0.1 10^3/uL (0.0-0.6); ABSOLUTE MONOCYTES (AUTO) 0.2 10^3/uL (0.1-1.4); ABSOLUTE NEUT (AUTO) 1.6 10^3/uL (1.7-8.2); BASOPHILS % (AUTO) 0.8 % (0-2); EOSINOPHILS % (AUTO) 2.6 % (0-6); HEMATOCRIT 36.7 % (36.0-47.0); HEMOGLOBIN 13.1 g/dL (12.0-15.5); LYMPHOCYTES % (AUTO) 34.9 % (13-45); MEAN CORPUSCULAR HEMOGLOBIN 32.5 pg (27.0-33.4); MEAN CORPUSCULAR HGB CONC 35.8 g/dL (32.0-36.0); MEAN CORPUSCULAR VOLUME 91 fl (80-97); MONOCYTES % (AUTO) 7.5 % (3-13); PLATELET COUNT 301 10^3/uL (150-450); RED BLOOD COUNT 4.04 10^6/uL (3.72-5.28); RED CELL DISTRIBUTION WIDTH 12.9 % (11.5-14.0); SEGMENTED NEUTROPHILS % (AUTO) 54.2 % (42-78); TOTAL CELLS COUNTED % (AUTO) 100 %
[2019-12-27 09:21] LABS: INTERNATIONAL RATION (INR) 1.04; PROTHROMBIN TIME 13.6 SEC (11.4-15.4)
--- NOTE | 2019-12-27 09:28 | RADIOLOGY REPORT (SQ) ---
EXAM DESCRIPTION: HIP LEFT AP/LATERAL IMAGES COMPLETED DATE/TIME: 12/27/2019 9:20 am REASON FOR STUDY: fall/pain COMPARISON: None. NUMBER OF VIEWS: Two views. TECHNIQUE: AP and frog-leg view of the left hip. LIMITATIONS: None. FINDINGS: MINERALIZATION: Normal. LEFT HIP: Subcapital left hip fracture with slight impaction. Joint space narrowing with subchondral sclerosis. OPPOSITE HIP: Prior total right hip arthroplasty. SOFT TISSUES: No findings. OTHER: No other significant finding. IMPRESSION: Slightly impacted subcapital left hip fracture. COMMENT: Pelvic fractures are often occult on plain radiographs. If strong clinical suspicion for f racture, recommend CT or MR. TECHNICAL DOCUMENTATION: JOB ID: [id number] [employer]- All Rights Reserved Reading location - IP/workstation name: [email or web address]
[2019-12-27 09:39] LABS: ALKALINE PHOSPHATASE 64 U/L (38-126); ANION GAP 5 (5-19); ASPARTATE AMINO TRANSFERASE 26 U/L (14-36); BILIRUBIN,TOTAL 0.5 mg/dL (0.2-1.3); BLOOD UREA NITROGEN 12 mg/dL (7-20); CALCIUM 9.8 mg/dL (8.4-10.2); CARBON DIOXIDE 29 mmol/L (22-30); CHLORIDE 97 mmol/L (98-107); CREATINE KINASE 37 U/L (30-135); GLUCOSE 107 mg/dL (75-110); POTASSIUM 4.1 mmol/L (3.6-5.0); TOTAL PROTEIN 7.1 g/dL (6.3-8.2)
[2019-12-27 09:44] LABS: APPEARANCE,URINE SLIGHTLY-CLOUDY; BILIRUBIN,URINE NEGATIVE (NEGATIVE); COLOR,URINE YELLOW; GLUCOSE, URINE NEGATIVE (NEGATIVE); KETONES,URINE NEGATIVE (NEGATIVE); LEUKOCYTE ESTERASE,URINE NEGATIVE (NEGATIVE); NITRITE,URINE NEGATIVE (NEGATIVE); PROTEIN,URINE NEGATIVE (NEGATIVE); URINE SPECIFIC GRAVITY 1.015; UROBILINOGEN,URINE NEGATIVE mg/dL (<2.0)
--- NOTE | 2019-12-27 10:14 | ER Document Report ---
Entered by VAZQUEZ GONZALEZ SCRIBE 12/27/19 0856 Acting as scribe for:RENETTA BARTLETT MD ED Fall - General Chief Complaint: Fall Stated Complaint: FALL/ARM PAIN Time Seen by Provider: 12/27/19 08:49 Primary Care Provider: IVANA ORTEGA MD [Primary Care Provider] - Follow up as needed Mode of Arrival: Medic Information source: Patient Notes: This 84-year-old female patient presents to the emergency department today with complaints of left hip pain. Patient states she was standing in her kitchen, lost her balance, and fell landing on her left side. Patient has previously broken her right hip and she states this left hip today feels similar to that hip fracture. Patient's left lower extremity is shortened and externally rotated. TRAVEL OUTSIDE OF THE [place] IN LAST 30 DAYS: No - Related data Allergies/Adverse Reactions: Penicillins Allergy (Verified 12/27/19 08:47) Generalized rash Past Medical History - General Information source: Patient, Emergency Med Personnel, [facility] Records - Social History Smoking Status: Never Smoker Cigarette use (# per day): No Chew tobacco use (# tins/day): No Smoking Education Provided: No Frequency of alcohol use: None Drug Abuse: None Lives with: Spouse/Significant other Family History: Reviewed & Not Pertinent Patient has suicidal ideation: No Patient has homicidal ideation: No - Past Medical History Cardiac Medical History: Reports: Hx Hypertension Musculoskeletal Medical History: Reports Hx Arthritis - left hip, Reports Hx Musculoskeletal Trauma - Right hip fracture in May 2018 Past Surgical History: Reports: Hx Hysterectomy Review of Systems - Review of Systems Constitutional: No symptoms reported EENT: No symptoms reported Cardiovascular: No symptoms reported Respiratory: No symptoms reported Gastrointestinal: No symptoms reported Genitourinary: No symptoms reported Female Genitourinary: No symptoms reported Musculoskeletal: See HPI, Joint pain - left hip Skin: No symptoms reported Hematologic/Lymphatic: No symptoms reported Neurological/Psychological: No symptoms reported -: Yes All other systems reviewed and negative Physical Exam - Vital signs Vitals: Resp Pulse Ox 16 93 12/27/19 08:50 12/27/19 08:50 - Notes Notes: Physical Exam: General: Alert, appears uncomfortable. HEENT: Normocephalic. Atraumatic. PERRL. Extraocular movements intact. Oropharynx clear. Neck: Supple. Non-tender. Respiratory: No respiratory distress. Clear and equal breath sounds bilaterally. Cardiovascular: Regular rate and rhythm. Abdominal: Normal Inspection. Non-tender. No distension. Normal Bowel Sounds. Back: No gross abnormalities. Extremities: Moves all four extremities. Upper extremities: Normal inspection. Normal ROM. Lower extremities: Left lower extremity is shortened and externally rotated. There is exquisite tenderness with palpation of the left hip. Neurological: Normal cognition. AAOx4. Normal speech. Psychological: Normal affect. Normal Mood. Skin: Warm. Dry. Normal color. Course - Vital Signs Vital signs: Temp Pulse Resp BP Pulse Ox 25 H 176/76 H 96 12/27/19 08:51 12/27/19 08:51 12/27/19 08:51 - Laboratory Result Diagrams: 12/27/19 08:50 12/27/19 08:50 Laboratory results interpreted by me: 12/27/19 12/27/19 12/27/19 08:50 08:50 09:15 WBC 3.0 L Absolute Neuts (auto) 1.6 L Sodium 131.2 L Chloride 97 L Urine Ascorbic Acid 20 H - Diagnostic Test Radiology reviewed: Image reviewed, Reports reviewed - X-ray shows slightly impacted subcapital fracture left hip - EKG Interpretation by Nv EKG shows normal: Sinus rhythm, [place], Intervals, QRS Complexes, ST-T Waves Rate: Normal - 62 Rhythm: NSR - Consults Dr. Mancia Time consulted: 09:35 Consulted provider: will see as inpatient Discharge - Discharge Clinical Impression: Closed left hip fracture Qualifiers: Encounter type: initial encounter Qualified Code(s): S72.002A - Fracture of unspecified part of neck of left femur, initial encounter for closed fracture Condition: Stable Disposition: ADMITTED INPATIENT Admitting Provider: Dr. Mancia Unit Admitted: Surgical Floor Referrals: IVANA ORTEGA MD [Primary Care Provider] - Follow up as needed I personally performed the services described in the documentation, reviewed and edited the documentation which was dictated to the scribe in my presence, and it accurately records my words and actions.
--- NOTE | 2019-12-27 10:31 | PDOC H&P ---
History of Present Illness Admission Date/PCP: 12/27/19 10:24 IVANA ORTEGA MD History of Present Illness: MADAY NOLASCO is a 84 year old female The patient is an 84-year-old white female with a past medical history significant for hypertension and is status post a right proximal femoral hemiarthroplasty in 2018 for femoral neck fracture. She fell this morning about 8 AM and sustained a left hip injury was unable to weight-bear. She was brought to emergency room where a left femoral neck fracture was identified. Orthopedics is consulted for fracture management. Past Medical History Cardiac Medical History: Reports: Hypertension Denies: Myocardial Infarction Pulmonary Medical History: Denies: Asthma Neurological Medical History: Denies: Seizures GI Medical History: Denies: Hepatitis, Hiatal Hernia Musculoskeltal Medical History: Reports: Arthritis - left hip Psychiatric Medical History: Denies: Depression Hematology: Denies: Anemia, Sickle Cell Disease Past Surgical History Past Surgical History: Reports: Hysterectomy, Orthopedic Surgery - Left proximal femoral hemiarthroplasty 2018 Denies: Amputation, Mastectomy, Pacemaker Social History Lives with: Spouse/Significant other Smoking Status: Never Smoker Frequency of Alcohol Use: None Hx Recreational Drug Use: No Drugs: None Hx Prescription Drug Abuse: No Family History Family History: Reviewed & Not Pertinent Parental Family History Reviewed: No Children Family History Reviewed: No Sibling(s) Family History Reviewed.: No Medication/Allergy Home Medications: Glucosam/Chond/Hyalu/Cf Borate [Move Free Joint Health Tablet] 1 each PO DAILY 05/26/18 Valsartan/Hydrochlorothiazide [Valsartan-Hctz 80-12.5 mg Tab] 1 each PO QAM 05/26/18 Vit C/Vit E/Lutein/Min/[place]-3 [Ocuvite Softgel] 1 each PO DAILY 05/26/18 Aspirin [Ecotrin 81 mg EC Tablet] 81 mg PO DAILY tabec 05/30/18 Allergies/Adverse Reactions: Penicillins Allergy (Verified 12/27/19 08:47) Generalized rash Review of Systems All systems: as per PMH Physical Exam Vital Signs: Temp Pulse Resp BP Pulse Ox 25 H 176/76 H 96 12/27/19 08:51 12/27/19 08:51 12/27/19 08:51 Intake & Output 04/05/20 04/06/20 04/07/20 06:59 06:59 06:59 Weight 66.5 kg General appearance: PRESENT: mild distress, severe distress, well-developed, well-nourished Respiratory exam: PRESENT: unlabored Cardiovascular exam: PRESENT: RRR Pulses: PRESENT: +1 pedal pulses bilateral Vascular exam: PRESENT: normal capillary refill GI/Abdominal exam: PRESENT: soft Rectal exam: PRESENT: deferred Extremities exam: PRESENT: other - Left lower extremity shortened and externally rotated distal neurovascular examination is intact Neurological exam: PRESENT: alert, awake, oriented to person, oriented to place, oriented to time, oriented to situation. ABSENT: motor sensory deficit Psychiatric exam: PRESENT: appropriate affect, normal mood. ABSENT: homicidal ideation, suicidal ideation Skin exam: PRESENT: dry, intact, warm. ABSENT: cyanosis, rash Results Laboratory Results: 12/27/19 08:50 12/27/19 08:50 12/27/19 12/27/19 12/27/19 08:50 08:50 09:15 WBC 3.0 L RBC 4.04 Hgb 13.1 Hct 36.7 MCV 91 MCH 32.5 MCHC 35.8 RDW 12.9 Plt Count 301 Seg Neutrophils % 54.2 Sodium 131.2 L Potassium 4.1 Chloride 97 L Carbon Dioxide 29 Anion Gap 5 BUN 12 Creatinine 0.60 Est GFR ( Amer) > 60 Glucose 107 Calcium 9.8 Total Bilirubin 0.5 AST 26 Alkaline Phosphatase 64 Total Protein 7.1 Albumin 4.0 Urine Color YELLOW Urine Appearance SLIGHTLY-CLOUDY Urine pH 6.0 Ur Specific [place] 1.015 Urine Protein NEGATIVE Urine Glucose (UA) NEGATIVE Urine Ketones NEGATIVE Urine Blood NEGATIVE Urine Nitrite NEGATIVE Ur Leukocyte Esterase NEGATIVE Urine WBC (Auto) 1 Urine RBC (Auto) 1 12/27/19 12/27/19 08:50 08:50 Creatine Kinase 37 Troponin I < 0.012 Impressions: Hip X-Ray 12/27/19 00:00 IMPRESSION: Slightly impacted subcapital left hip fracture. Status: Imported from PACS Assessment & Plan - Diagnosis (1) Fracture of femoral neck, left Qualifiers: Encounter type: initial encounter Fracture type: closed Qualified Code(s): S72.002A - Fracture of unspecified part of neck of left femur, initial encounter for closed fracture Is this a current diagnosis for this admission?: Yes Plan: Plan for left proximal femoral hemiarthroplasty under regional anesthesia - Time Time Spent: 50 to 70 Minutes Anticipated discharge: Home with Homehealth Within: within 48 hours
[2019-12-27] MEDS ORDERED: MIDAZOLAM 2 MG/2 ML INJ ONE (10:47)
[2019-12-27] MEDS ORDERED: FENTANYL CITRATE INJ/PF 100 MCG/2 ML AMPUL ONE (10:47)
[2019-12-27] MEDS ORDERED: PROPOFOL INJ 200 MG/20 ML VIAL IV ONE (10:47)
[2019-12-27] MEDS ORDERED: TRANEXAMIC ACID INJ/PF 1,000 MG/10 ML SDV ONE ×2 (11:16→14:29)
[2019-12-27] MEDS ORDERED: VANCOMYCIN HCL 1,000 MG in DEXTROSE 5%-WATER 250 ML IV PRN (11:17)
[2019-12-27] MEDS ORDERED: RINGERS SOLUTION,LACTATED 1,000 ML IV PRN ×2 (11:18→14:00)
[2019-12-27] MEDS ORDERED: MORPHINE SULFATE 10 MG/ML INJ IV PRN (11:19)
[2019-12-27] MEDS ORDERED: BUPIVACAINE INJ/PF LIPOSOME/PF 266 MG/20 ML SDV ONE (11:28)
[2019-12-27] MEDS ORDERED: TRANEXAMIC ACID INJ/PF 1,000 MG/10 ML SDV IV ONE (11:30)
[2019-12-27] MEDS ORDERED: ONDANSETRON HCL INJ/PF 4 MG/2 ML SDV IV PRN (12:04)
[2019-12-27] MEDS ORDERED: MEPERIDINE HCL/PF INJ 25 MG/1 ML DISP.SYRIN IV PRN (12:04)
[2019-12-27] MEDS ORDERED: DIPHENHYDRAMINE HCL 50 MG/ML VIAL IV PRN (12:04)
[2019-12-27] MEDS ORDERED: PROMETHAZINE HCL INJ 25 MG/1 ML VIAL IV PRN ×2 (12:04)
[2019-12-27] MEDS ORDERED: OXYCODONE-ACETAMINOPHEN 5-325 MG TABLET PO PRN ×2 (12:04)
[2019-12-27] MEDS ORDERED: FENTANYL CITRATE INJ/PF 100 MCG/2 ML AMPUL IV PRN ×3 (12:04)
--- NOTE | 2019-12-27 12:33 | Operative Report ---
Operative Report DATE OF SURGERY: 12/27/19 PREOPERATIVE DIAGNOSIS: Left femoral neck fracture OPERATION: Left proximal femoral hemiarthroplasty SURGEON: ABIGAIL ESPOSITO ANESTHESIA: Spinal TISSUE REMOVED OR ALTERED: Femoral head to pathology ESTIMATED BLOOD LOSS: 50 PROCEDURE: With the patient in the right lateral decubitus position on the operating table the left lower extremity and hindquarter are prepped and draped in sterile fashion. A curved incision made over the greater trochanter and a posterior approach the hip was taken. The proximal femur was retracted anteriorly and the underlying femoral head exposed. This was removed using a corkscrew. Access is gained the femoral canal using a box osteotome to the piriformis fossa. The femur is then prepared using Avery Accolade 2 broaches until a #5 broach is seated. A trial reduction is now performed with a 45 mm unipolar head. This re-creates preoperative leg length provides excellent anterior posterior stability. The hip is dislocated and trial implants removed. The wound was oracio air with pulse lavage. The [place] #5 Accolade 2 stem is impacted into the canal. The 45 mm head with unipolar -4 neck extension is impacted onto the trunnion. The hip is reduced. The wound is again irrigated with pulse lavage. A subset closed in layers interrupted Vicryl followed by Dermabond. A sterile dressing was placed and the patient was returned to the PACU in satisfactory condition.
[2019-12-27] MEDS ORDERED: ONDANSETRON 4 MG TAB.RAPDIS PO PRN (13:37)
[2019-12-27] MEDS ORDERED: ACETAMINOPHEN 325 MG TABLET PO PRN (13:38)
--- NOTE | 2019-12-27 14:10 | EKG REPORT ---
SEVERITY:- NORMAL ECG - SINUS RHYTHM : Confirmed by: Claudia Schuster MD 27-Dec-2019 14:10:10
[2019-12-27] MEDS ORDERED: DEXAMETHASONE SOD PHOSPHATE INJ 4 MG/1 ML VIAL ONE (14:18)
[2019-12-27] MEDS ORDERED: ONDANSETRON HCL INJ/PF 4 MG/2 ML SDV ONE (14:18)
[2019-12-27] MEDS: TRANEXAMIC ACID INJ/PF 1,000 MG/10 ML SDV IV ONE ×2 (14:30→15:24)
[2019-12-27] MEDS: MORPHINE SULFATE 10 MG/ML INJ IV PRN ×3 (17:20→23:32)
[2019-12-27] MEDS ORDERED: VANCOMYCIN HCL 1,000 MG in DEXTROSE 5%-WATER 250 ML IV ONE (23:00)
[2019-12-28 05:49] LABS: HEMATOCRIT 34.3 % (36.0-47.0); HEMOGLOBIN 12.1 g/dL (12.0-15.5); MEAN CORPUSCULAR HEMOGLOBIN 32.1 pg (27.0-33.4); MEAN CORPUSCULAR HGB CONC 35.4 g/dL (32.0-36.0); MEAN CORPUSCULAR VOLUME 91 fl (80-97); PLATELET COUNT 260 10^3/uL (150-450); RED BLOOD COUNT 3.78 10^6/uL (3.72-5.28); RED CELL DISTRIBUTION WIDTH 12.6 % (11.5-14.0); WHITE BLOOD COUNT 10.1 10^3/uL (4.0-10.5)
[2019-12-28 06:01] LABS: ANION GAP 6 (5-19); BLOOD UREA NITROGEN 17 mg/dL (7-20); CALCIUM 9.6 mg/dL (8.4-10.2); CARBON DIOXIDE 26 mmol/L (22-30); CHLORIDE 98 mmol/L (98-107); GLUCOSE 130 mg/dL (75-110); POTASSIUM 4.1 mmol/L (3.6-5.0)
[2019-12-28] MEDS: OXYCODONE HCL IR 5 MG TABLET PO PRN ×3 (06:59→23:15)
--- NOTE | 2019-12-28 07:42 | PDOC PROGRESS REPORT ---
Subjective Progress Note for:: 12/28/19 Reason For Visit: S/P LEFT HIP FRACTURE 84-year-old white female now postop day 1 status post left proximal femoral hemiarthroplasty for femoral neck fracture. Patient not seen by physical therapy at discharge planning yesterday. Patient is complaining of left lower extremity pain which is much greater in severity than her previous experience approximately 2 months ago on the contralateral side. She is complaining about pain on the plantar surface of her foot which limits her ability to weight-bear as well as inguinal pain. Physical Exam Vital Signs: Temp Pulse Resp BP Pulse Ox 36.4 C 75 18 134/59 H 93 12/28/19 01:03 12/28/19 01:03 12/28/19 01:03 12/28/19 01:03 12/28/19 01:03 Intake & Output 12/27/19 12/28/19 12/29/19 06:59 06:59 06:59 Intake Total 4766 Output Total 3684 Balance 1082 Weight 66.5 kg Physical Exam: Elderly white female lying in bed in modest distress. Patient is alert, oriented, and appropriate. General appearance: PRESENT: mild distress, well-developed, well-nourished Head exam: PRESENT: normocephalic Respiratory exam: PRESENT: unlabored Cardiovascular exam: PRESENT: RRR Pulses: PRESENT: +1 pedal pulses bilateral Vascular exam: PRESENT: normal capillary refill GI/Abdominal exam: PRESENT: soft Rectal exam: PRESENT: deferred Extremities exam: PRESENT: other - Patient has intact great toe flexion and extension against resistance. Sensory examination is tested and the patient cannot reliably determine a difference with the contralateral extremity. Passive range of motion the foot ankle and knee are pain-free. Gentle passive range of motion of the hip is relatively minimal discomfort. Leg lengths are equal. There is no skin abnormalities. Left hip dressing is clean dry and intact. Neurological exam: PRESENT: alert, awake, oriented to person, oriented to place, oriented to time, oriented to situation. ABSENT: motor sensory deficit Psychiatric exam: PRESENT: appropriate affect, normal mood. ABSENT: homicidal ideation, suicidal ideation Skin exam: PRESENT: dry, intact, warm. ABSENT: cyanosis, rash Results Laboratory Results: 12/28/19 05:00 12/28/19 05:00 04/06/20 04/06/20 04/06/20 08:50 08:50 09:15 WBC 3.0 L RBC 4.04 Hgb 13.1 Hct 36.7 MCV 91 MCH 32.5 MCHC 35.8 RDW 12.9 Plt Count 301 Seg Neutrophils % 54.2 Sodium 131.2 L Potassium 4.1 Chloride 97 L Carbon Dioxide 29 Anion Gap 5 BUN 12 Creatinine 0.60 Est GFR ( Amer) > 60 Glucose 107 Calcium 9.8 Total Bilirubin 0.5 AST 26 Alkaline Phosphatase 64 Total Protein 7.1 Albumin 4.0 Urine Color YELLOW Urine Appearance SLIGHTLY-CLOUDY Urine pH 6.0 Ur Specific [place] 1.015 Urine Protein NEGATIVE Urine Glucose (UA) NEGATIVE Urine Ketones NEGATIVE Urine Blood NEGATIVE Urine Nitrite NEGATIVE Ur Leukocyte Esterase NEGATIVE Urine WBC (Auto) 1 Urine RBC (Auto) 1 12/28/19 12/28/19 05:00 05:00 WBC 10.1 D RBC 3.78 Hgb 12.1 Hct 34.3 L MCV 91 MCH 32.1 MCHC 35.4 RDW 12.6 Plt Count 260 Seg Neutrophils % Sodium 129.7 L Potassium 4.1 Chloride 98 Carbon Dioxide 26 Anion Gap 6 BUN 17 Creatinine 0.55 Est GFR ( Amer) > 60 Glucose 130 H Calcium 9.6 Total Bilirubin AST Alkaline Phosphatase Total Protein Albumin Urine Color Urine Appearance Urine pH Ur Specific [place] Urine Protein Urine Glucose (UA) Urine Ketones Urine Blood Urine Nitrite Ur Leukocyte Esterase Urine WBC (Auto) Urine RBC (Auto) 12/27/19 12/27/19 08:50 08:50 Creatine Kinase 37 Troponin I < 0.012 Impressions: Hip X-Ray 12/27/19 00:00 IMPRESSION: Slightly impacted subcapital left hip fracture. Status: Imported from PACS Assessment & Plan - Diagnosis (1) Fracture of femoral neck, left Qualifiers: Encounter type: initial encounter Fracture type: closed Qualified Code(s): S72.002A - Fracture of unspecified part of neck of left femur, initial encounter for closed fracture Is this a current diagnosis for this admission?: Yes Plan: Postoperative x-rays not obtained in the recovery room yesterday. They have been ordered for this morning to assure that the reconstruction is appropriate. The underlying reason for the patient's lower extremity pain is not clear at th is point. It has some components which are consistent with a neuropraxia potentially during the floor fall over from the surgery. There is clearly no motor deficit that I can discern and sensory deficit is not reliably different than the contralateral extremity. Plan will be to obtain the x-ray today and mobilize with physical therapy and weightbearing as tolerated basis. Analgesic medication as needed. - Time Time Spent with patient: 15-24 minutes Anticipated discharge: Home with Homehealth Within: within 48 hours
--- NOTE | 2019-12-28 09:44 | RADIOLOGY REPORT (SQ) ---
EXAM DESCRIPTION: PELVIS AP IMAGES COMPLETED DATE/TIME: 12/28/2019 9:15 am REASON FOR STUDY: POST OP FOLLOW UP COMPARISON: None. NUMBER OF VIEWS: One view TECHNIQUE: Digital radiographic images of the pelvis post-procedure LIMITATIONS: None. FINDINGS: BONES: No worrisome or unexpected findings post-procedure. DEVICE: Patient is status post total left hip arthroplasty. There has been a prior right hip arthrop lasty. SOFT TISSUES: No worrisome findings. Expected postoperative soft tissue changes. IMPRESSION: Satisfactory postoperative left hip. TECHNICAL DOCUMENTATION: JOB ID: [id number] 2010 [employer]- All Rights Reserved Reading location - IP/workstation name: [email or web address]
[2019-12-28] MEDS: VALSARTAN 80 MG TABLET PO SCH ×2 (09:51→09:57)
[2019-12-28] MEDS: HYDROCHLOROTHIAZIDE 12.5 MG TABLET PO SCH ×2 (09:51→09:57)
--- NOTE | 2019-12-29 07:20 | PDOC PROGRESS REPORT ---
Subjective Progress Note for:: 12/29/19 Reason For Visit: S/P LEFT HIP FRACTURE 84-year-old white female now postop day 2 status post left proximal femoral hemiarthroplasty for displaced femoral neck fracture. Patient reports improved pain and was able to sleep overnight. She took 3 steps with physical therapy yesterday. She continues to complain of inguinal pain associated with flexion of the hip. Physical Exam Vital Signs: Temp Pulse Resp BP Pulse Ox 37.5 C 95 18 136/49 H 91 L 12/28/19 21:33 12/28/19 21:33 12/28/19 21:33 12/28/19 21:33 12/28/19 21:33 Intake & Output 12/28/19 12/29/19 12/30/19 06:59 06:59 06:59 Intake Total 5026 540 Output Total 3684 200 Balance 1342 340 Weight 66.7 kg Physical Exam: Elderly white female lying in a hospital bed. Patient is alert, oriented, and appropriate. General appearance: PRESENT: no acute distress Head exam: PRESENT: normocephalic Respiratory exam: PRESENT: unlabored Cardiovascular exam: PRESENT: RRR Pulses: PRESENT: +1 pedal pulses bilateral Vascular exam: PRESENT: normal capillary refill Extremities exam: PRESENT: other - Left hip dressing clean dry and intact. Leg lengths are equal. I am able to internally and externally rotate the lower e xtremity in an extended position without any significant discomfort. Flexion of the hip past approximately 45 degrees causes inguinal pain. There is no areas of discrete tenderness. There is no erythema or induration about the hip. Operative x-rays demonstrate a well-seated uncemented hemiarthroplasty without of malposition or other significant bone injury Neurological exam: PRESENT: alert, awake, oriented to person, oriented to place, oriented to time, oriented to situation. ABSENT: motor sensory deficit Psychiatric exam: PRESENT: appropriate affect, normal mood. ABSENT: homicidal ideation, suicidal ideation Skin exam: PRESENT: dry, intact, warm. ABSENT: cyanosis, rash Results Laboratory Results: 12/28/19 05:00 12/28/19 05:00 12/27/19 12/27/19 08:50 08:50 Creatine Kinase 37 Troponin I < 0.012 Impressions: Hip X-Ray 12/27/19 00:00 IMPRESSION: Slightly impacted subcapital left hip fracture. Pelvis X-Ray 12/28/19 08:04 IMPRESSION: Satisfactory postoperative left hip. Status: Imported from PACS Assessment & Plan - Diagnosis (1) Fracture of femoral neck, left Qualifiers: Encounter type: initial encounter Fracture type: closed Qualified Code(s): S72.002A - Fracture of unspecified part of neck of left femur, initial encounter for closed fracture Is this a current diagnosis for this admission?: Yes Plan: Analgesia as needed. Mobilize and weightbearing as tolerated basis. Anticipate the need for [facility] facility placement unless there is a significant im provement in her functional level. - Time Time Spent with patient: 15-24 minutes Anticipated discharge: SNF Within: within 24 hours
[2019-12-29] MEDS: HYDROCHLOROTHIAZIDE 12.5 MG TABLET PO SCH (09:54)
[2019-12-29] MEDS: VALSARTAN 80 MG TABLET PO SCH (09:57)
--- NOTE | 2019-12-29 14:27 | CDI QUERY ---
CDI Query CDI Review: Dear Provider: To better reflect your patients severity of illness, morbidity, and resource utilization Please specify and document in the Progress Notes and Discharge Summary if you are monitoring / treating / evaluating any of the following conditions: Query Clinical indicators Please document the significance, if any, of this lab result: Hyponatremia Hypoosmolality Hyponatremia with dehydration Insignificant lab result Unable to determine Other Per Orthopedic Progress Note: 84-year-old white female now postop day 2 status post left proximal femoral hemiarthroplasty for displaced femoral neck fracture Labs: Date 12/26 --> 12/27 Sodium 131.2 --> 129.7 The terms probable, suspected, likely, possible or still to be ruled out may be used if you are unable to determine the exact nature of a condition. Thank you for your consideration, Clinical Documentation [facility] MANUEL Hicks RN, BSN RN Office [phone] Office [phone]
[2019-12-29] MEDS: OXYCODONE HCL IR 5 MG TABLET PO PRN (21:55)
--- NOTE | 2019-12-30 07:41 | PDOC PROGRESS REPORT ---
Subjective Progress Note for:: 12/30/19 Reason For Visit: S/P LEFT HIP FRACTURE 84-year-old white female now postop day 3 status post left proximal femoral hemiarthroplasty for displaced femoral neck fracture. Limited progress with physical therapy yesterday. Brandie foot discomfort has improved if not resolved. Patient has had urinary retention and a Ordaz catheter placed. Nursing/administration is indicated the patient has a hyponatremia. I suspect this represents laboratory variation. Physical Exam Vital Signs: Temp Pulse Resp BP Pulse Ox 36.8 C 71 18 118/43 L 90 L 12/30/19 00:29 12/30/19 00:29 12/30/19 00:29 12/30/19 00:29 12/30/19 00:29 Intake & Output 12/29/19 12/30/19 12/31/19 06:59 06:59 06:59 Intake Total 540 600 Output Total 200 1270 Balance 340 -670 Weight 66.4 kg 66.8 kg Physical Exam: Elderly white female lying in bed in no acute apparent distress at this point. General appearance: PRESENT: no acute distress Head exam: PRESENT: normocephalic Respiratory exam: PRESENT: unlabored Cardiovascular exam: PRESENT: RRR Pulses: PRESENT: +1 pedal pulses bilateral Vascular exam: PRESENT: normal capillary refill GI/Abdominal exam: PRESENT: soft Rectal exam: PRESENT: deferred Extremities exam: PRESENT: other - Left hip dressing from the operating room is clean dry and intact. Leg lengths are equal. Passive range of motion of the l eft lower extremity at the hip and knee seems to be less painful today than it has been in the past. Neurological exam: PRESENT: alert, awake, oriented to person, oriented to place, oriented to time, oriented to situation. ABSENT: motor sensory deficit Psychiatric exam: PRESENT: appropriate affect, normal mood. ABSENT: homicidal ideation, suicidal ideation Skin exam: PRESENT: dry, intact, warm. ABSENT: cyanosis, rash Results Laboratory Results: 12/28/19 05:00 12/28/19 05:00 12/27/19 12/27/19 08:50 08:50 Creatine Kinase 37 Troponin I < 0.012 Impressions: Hip X-Ray 12/27/19 00:00 IMPRESSION: Slightly impacted subcapital left hip fracture. Pelvis X-Ray 12/28/19 08:04 IMPRESSION: Satisfactory postoperative left hip. Status: Imported from PACS Assessment & Plan - Diagnosis (1) Fracture of femoral neck, left Qualifiers: Encounter type: initial encounter Fracture type: closed Qualified Code(s): S72.002A - Fracture of unspecified part of neck of left femur, initial encounter for closed fracture Is this a current diagnosis for this admission?: Yes Plan: Mobilize with physical therapy and weight-bear as tolerated basis. Anticipate the need for senior care facility placement. Patient can be transferred once a bed has been identified. [place] form has been signed. Patient has not been contacted by social work for skilled facility placement as of this time (2) Urinary retention with incomplete bladder emptying Is this a current diagnosis for this admission?: Yes Plan: Discontinue the Ordaz catheter. Patient may undergo IV every 6 as needed for urinary retention. Please do not reinsert the Ordaz catheter without discussing with Dr. Mancia - Time Time Spent with patient: 15-24 minutes Anticipated discharge: SNF Within: when bed available
[2019-12-30] MEDS: VALSARTAN 80 MG TABLET PO SCH (11:10)
[2019-12-30] MEDS: HYDROCHLOROTHIAZIDE 12.5 MG TABLET PO SCH (11:10)
[2019-12-30] MEDS: OXYCODONE HCL IR 5 MG TABLET PO PRN (21:48)
--- NOTE | 2019-12-31 07:40 | PDOC PROGRESS REPORT ---
Subjective Progress Note for:: 12/31/19 Subjective:: 84-year-old female status post left femoral neck fracture. Patient states her pain is slowly improving but still has difficulty with ambulation. Did not receive physical therapy yesterday. She has not required the catheter since yesterday. Denies chest pain or shortness of breath. Reason For Visit: S/P LEFT HIP FRACTURE Physical Exam Vital Signs: Temp Pulse Resp BP Pulse Ox 98.7 F 76 12 138/57 H 90 L 12/31/19 00:34 12/31/19 00:34 12/31/19 00:34 12/31/19 00:34 12/31/19 00:34 Intake & Output 12/30/19 12/31/19 01/01/20 06:59 06:59 06:59 Intake Total 600 480 Output Total 1270 760 Balance -670 -280 Weight 66.8 kg 66.8 kg Musculoskeletal exam: PRESENT: other - Left hip: Dressing clean/dry/intact no erythema or drainage. Moderate thigh swelling without change, intact plantarflexion/dorsiflexion. No sensory deficits. No calf tenderness. Results Laboratory Results: 12/28/19 05:00 12/28/19 05:00 12/27/19 12/27/19 08:50 08:50 Creatine Kinase 37 Troponin I < 0.012 Impressions: Hip X-Ray 12/27/19 00:00 IMPRESSION: Slightly impacted subcapital left hip fracture. Pelvis X-Ray 12/28/19 08:04 IMPRESSION: Satisfactory postoperative left hip. Assessment & Plan - Diagnosis (1) Fracture of femoral neck, left Qualifiers: Encounter type: initial encounter Fracture type: closed Qualified Code(s): S72.002A - Fracture of unspecified part of neck of left femur, initial encounter for closed fracture Is this a current diagnosis for this admission?: Yes Plan: Mobilize with physical therapy and weight-bear as tolerated basis. Anticipate the need for [facility] facility placement versus home health. Patient is optimistic to return home due to current pandemic. If patient is able to ambulate safely from bed to chair and bed to bathroom she may be discharged to home with home health. In the meantime we will continue formal physical therapy. - Time Time Spent with patient: Less than 15 minutes
[2019-12-31] MEDS: HYDROCHLOROTHIAZIDE 12.5 MG TABLET PO SCH (09:35)
[2019-12-31] MEDS: VALSARTAN 80 MG TABLET PO SCH (09:35)
[2019-12-31] MEDS ORDERED: ASPIRIN 81 MG TABLET, CHEWABLE PO SCH (10:00)
[2019-12-31 11:48] VITALS: BP 143/52
--- NOTE | 2020-01-12 08:01 | PDOC DISCHARGE SUMMARY ---
Impression - Admit/DC Date/PCP Admission Date/Primary Care Provider: 12/27/19 10:24 IVANA ORTEGA MD Discharge Date: 01/01/20 - Discharge Diagnosis (1) Fracture of femoral neck, left Is this a current diagnosis for this admission?: Yes (2) Urinary retention with incomplete bladder emptying Is this a current diagnosis for this admission?: Yes - Additional Information Resuscitation Status: Full Code Discharge Diet: As Tolerated Discharge Activity: Activity As Tolerated, No Lifting Over 10 Pounds, No Lifting/Push/Pulling Referrals: ABIGAIL ESPOSITO MD [ACTIVE STAFF] - 01/11/20 8:45 am Home Medications: Glucosam/Chond/Hyalu/Cf Borate [Move Free Joint Health Tablet] 2 each PO DAILY 05/26/18 Valsartan/Hydrochlorothiazide [Valsartan-Hctz 80-12.5 mg Tab] 1 each PO QAM 05/26/18 Vit C/Vit E/Lutein/Min/[place]-3 [Ocuvite Softgel] 1 each PO DAILY 05/26/18 Aspirin [Ecotrin 81 mg EC Tablet] 81 mg PO DAILY tabec 05/30/18 History of Present Illiness History of Present Illness: Patient is an 84-year-old white female who lives independently,. She fell and sustained a left femoral neck fracture. She is evaluated emergency room and admitted to the orthopedic service for fracture management. Hospital Course Hospital Course: Patient was admitted and subsequently taken to the operating room where she undergoes an uncomplicated left proximal femoral hemiarthroplasty. Postoperatively the patient had issues with adequate pain control as well as with urinary retention. Physical Exam Vital Signs: Temp Pulse Resp BP Pulse Ox 36.8 C 74 18 143/52 H 97 12/31/19 12:00 12/31/19 12:00 12/31/19 12:00 12/31/19 12:00 12/31/19 12:00 General appearance: PRESENT: no acute distress, mild distress, well-developed, well-nourished Head exam: PRESENT: normocephalic Respiratory exam: PRESENT: unlabored Cardiovascular exam: PRESENT: RRR Pulses: PRESENT: +1 pedal pulses bilateral Vascular exam: PRESENT: normal capillary refill GI/Abdominal exam: PRESENT: soft Rectal exam: PRESENT: deferred Musculoskeletal exam: PRESENT: other - Left hip dressing clean dry and intact. Leg lengths are equal. Neurological exam: PRESENT: alert, awake, oriented to person, oriented to place, oriented to time, oriented to situation. ABSENT: motor sensory deficit Psychiatric exam: PRESENT: appropriate affect, normal mood. ABSENT: homicidal ideation, suicidal ideation Skin exam: PRESENT: dry, intact, warm. ABSENT: cyanosis, rash Results Laboratory Results: WBC 10.1 10^3/uL (4.0-10.5) D 12/28/19 05:00 RBC 3.78 10^6/uL (3.72-5.28) 12/28/19 05:00 Hgb 12.1 g/dL (12.0-15.5) 12/28/19 05:00 Hct 34.3 % (36.0-47.0) L 12/28/19 05:00 MCV 91 fl (80-97) 12/28/19 05:00 MCH 32.1 pg (27.0-33.4) 12/28/19 05:00 MCHC 35.4 g/dL (32.0-36.0) 12/28/19 05:00 RDW 12.6 % (11.5-14.0) 12/28/19 05:00 Plt Count 260 10^3/uL (150-450) 12/28/19 05:00 Lymph % (Auto) 34.9 % (13-45) 12/27/19 08:50 Ceiba % (Auto) 7.5 % (3-13) 12/27/19 08:50 Eos % (Auto) 2.6 % (0-6) 12/27/19 08:50 Baso % (Auto) 0.8 % (0-2) 12/27/19 08:50 Absolute Neuts (auto) 1.6 10^3/uL (1.7-8.2) L 12/27/19 08:50 Absolute Lymphs (auto) 1.0 10^3/uL (0.5-4.7) 12/27/19 08:50 Absolute Monos (auto) 0.2 10^3/uL (0.1-1.4) 12/27/19 08:50 Absolute Eos (auto) 0.1 10^3/uL (0.0-0.6) 12/27/19 08:50 Absolute Basos (auto) 0.0 10^3/uL (0.0-0.2) 12/27/19 08:50 Seg Neutrophils % 54.2 % (42-78) 12/27/19 08:50 PT 13.6 SEC (11.4-15.4) 12/27/19 08:50 INR 1.04 12/27/19 08:50 Sodium 129.7 mmol/L (137-145) L 12/28/19 05:00 Potassium 4.1 mmol/L (3.6-5.0) 12/28/19 05:00 Chloride 98 mmol/L (98-107) 12/28/19 05:00 Carbon Dioxide 26 mmol/L (22-30) 12/28/19 05:00 Anion Gap 6 (5-19) 12/28/19 05:00 BUN 17 mg/dL (7-20) 12/28/19 05:00 Creatinine 0.55 mg/dL (0.52-1.25) 12/28/19 05:00 Est GFR ( Amer) > 60 (>60) 12/28/19 05:00 Est GFR (MDRD) Non-Af > 60 (>60) 12/28/19 05:00 Glucose 130 mg/dL (75-110) H 12/28/19 05:00 Calcium 9.6 mg/dL (8.4-10.2) 12/28/19 05:00 Total Bilirubin 0.5 mg/dL (0.2-1.3) 12/27/19 08:50 Direct Bilirubin 0.0 mg/dL (0.0-0.4) 12/27/19 08:50 Neonat Total Bilirubin Not Reportable 12/27/19 08:50 Neonat Direct Bilirubin Not Reportable 12/27/19 08:50 Neonat Indirect Bili Not Reportable 12/27/19 08:50 AST 26 U/L (14-36) 12/27/19 08:50 ALT 13 U/L (<35) 12/27/19 08:50 Alkaline Phosphatase 64 U/L (38-126) 12/27/19 08:50 Creatine Kinase 37 U/L (30-135) 12/27/19 08:50 Troponin I < 0.012 ng/mL 12/27/19 08:50 Total Protein 7.1 g/dL (6.3-8.2) 12/27/19 08:50 Albumin 4.0 g/dL (3.5-5.0) 12/27/19 08:50 Urine Color YELLOW 12/27/19 09:15 Urine Appearance SLIGHTLY-CLOUDY 12/27/19 09:15 Urine pH 6.0 (5.0-9.0) 12/27/19 09:15 Ur Specific [place] 1.015 12/27/19 09:15 Urine Protein NEGATIVE mg/dL (NEGATIVE) 12/27/19 09:15 Urine Glucose (UA) NEGATIVE mg/dL (NEGATIVE) 12/27/19 09:15 Urine Ketones NEGATIVE mg/dL (NEGATIVE) 12/27/19 09:15 Urine Blood NEGATIVE (NEGATIVE) 12/27/19 09:15 Urine Nitrite NEGATIVE (NEGATIVE) 12/27/19 09:15 Urine Bilirubin NEGATIVE (NEGATIVE) 12/27/19 09:15 Urine Urobilinogen NEGATIVE mg/dL (<2.0) 12/27/19 09:15 Ur Leukocyte Esterase NEGATIVE (NEGATIVE) 12/27/19 09:15 Urine WBC (Auto) 1 /HPF 12/27/19 09:15 Urine RBC (Auto) 1 /HPF 12/27/19 09:15 Squamous Epi Cells Auto <1 /HPF 12/27/19 09:15 Urine Mucus (Auto) RARE /LPF 12/27/19 09:15 Urine Ascorbic Acid 20 (NEGATIVE) H 12/27/19 09:15 12/27/19 08:50 Troponin I < 0.012 Impressions: Hip X-Ray 12/27/19 00:00 IMPRESSION: Slightly impacted subcapital left hip fracture. Pelvis X-Ray 12/28/19 08:04 IMPRESSION: Satisfactory postoperative left hip. Plan Plan of Treatment: Tentative plan was for the patient to be discharged to a senior care facility because of limited functional capacity. In some manner this was transitioned to a discharge home with home health services. The origin of the order for discharge is unknown to me at this point. Goals: Weightbearing as tolerated ambulation Stroke Is this a Stroke Patient?: No Stroke Pt being discharged on Anti-thrombolytic therapy?: Yes Acute Heart Failure - Is this a Heart Failure Patient?: No
== END 2019-12-31 13:34 | DRG 470 ==
LOC: ER 08:40 → EH 10:24 → 4S 14:17
PROVIDERS: ADMIT Orthopaedic Surgery; ATTEND Orthopaedic Surgery
PROC: 0SRS0JA Replacement of Left Hip Joint, Femoral Surface with Synthetic Substitute, Uncemented, Open Approach (ICD-10-PCS; principal; 2019-12-27 11:30)
DX: S72.012A Unspecified intracapsular fracture of left femur, initial encounter for closed fracture (principal); W19.XXXA Unspecified fall, initial encounter; I10 Essential (primary) hypertension; R33.8 Other retention of urine; Z88.0 Allergy status to penicillin; Z96.641 Presence of right artificial hip joint
CPT/HCPCS: 01210; 36415; 51702; 72170; 80048; 80053; 81001; 82550; 84484; 85025; 85027; 85610; 88304; 88311; 93005; 93010; 96374; 99285; C1776; C9290; J1100; J2250; J2270; J2405; J2704; J3010; J3370; J3490; J7060

== ENCOUNTER 2020-03-30 14:13 | Emergency (ER) | payer MEDICARE ==
--- NOTE | 2020-03-30 14:35 | ER Document Report ---
ED General - General Chief Complaint: Hip Pain Stated Complaint: HIP PAIN Time Seen by Provider: 03/30/20 14:24 Primary Care Provider: IVANA ORTEGA MD [Primary Care Provider] - Follow up as needed Notes: Patient presents with several days of left hip pain, lateral into the buttock and low back worse with movement. It is been going on for several days. She had a hip replacement back in December after a fall hemiarthroplasty by Dr. Esposito and did well after that but for last few weeks has been having intermittent pain which acutely worsened last 2 days. No repeat falls. She is actually seen at Dr. Andrews's office today for the spoke with him and he says that he was not super concerned about her hip and injected her trochanteric bursa. He said that she was in mostly in pain because she refused to take pain medicine. She denies a fever. He was less concerned about septic hip. He did an x-ray in the office and it was normal. He was not aware that the patient called 911 and was transferred to the emergency department. She does live at home having trouble functioning however her daughter is with her. TRAVEL OUTSIDE OF THE [place] IN LAST 30 DAYS: No - Related Data Allergies/Adverse Reactions: Penicillins Allergy (Verified 12/27/19 08:47) Generalized rash Past Medical History - General Information source: Patient - Social History Smoking Status: Never Smoker Frequency of alcohol use: None Drug Abuse: None Family History: Reviewed & Not Pertinent - Past Medical History Cardiac Medical History: Reports: Hx Hypertension Denies: Hx Heart Attack Pulmonary Medical History: Denies: Hx Asthma Neurological Medical History: Denies: Hx Cerebrovascular Accident, Hx Seizures Renal/ Medical History: Denies: Hx Peritoneal Dialysis GI Medical History: Denies: Hx Hepatitis, Hx Hiatal Hernia, Hx Ulcer Musculoskeletal Medical History: Reports Hx Arthritis - left hip, Reports Hx Musculoskeletal Trauma - Right hip fracture in May 2018 Psychiatric Medical History: Denies: Hx Depression Infectious Medical History: Denies: Hx Hepatitis Past Surgical History: Reports: Hx Hysterectomy, Hx Orthopedic Surgery - Left proximal femoral hemiarthroplasty 2018. Denies: Hx Mastectomy, Hx Open Heart Surgery, Hx Pacemaker Review of Systems - Review of Systems Notes: REVIEW OF SYSTEMS GEN: Denies fever, chills, weight loss ENT: Denies sore throat, nasal discharge, ear pain EYES: Denies blurry vision, eye pain, discharge CV: Denies chest pain, palpitations, edema RESP: Denies cough, shortness of breath, wheezing GI: Denies abdominal pain, nausea, vomiting, diarrhea MSK: Pain buttock pain SKIN: Denies rash, skin lesions LYMPH: Denies swollen glands/lymph nodes NEURO: Denies headache, focal weakness or numbness, dizziness PSYCH: Denies depression, suicidal or homicidal ideation PHYSICAL EXAMINATION General: No acute distress, well-nourished Head: Atraumatic, normocephalic ENT: Mouth normal, oropharynx moist, no exudates or tonsillar enlargement Eyes: Conjunctiva normal, pupils equal, lids normal Neck: No JVD, supple, no guarding CVS: Normal rate, regular rhythm, no murmurs Resp: No resp distress, equal and normal breath sounds bilaterally GI: Nondistended, soft, no tenderness to palpation, no rebound or guarding Ext: Motion of the hip is preserved although with some pain no guarding. Tenderness in left greater trochanter. No buttock tenderness. Pulses intact with soft compartments. Back: No CVA or midline TTP Skin: No rash, warm Lymphatic: No lymphadeopathy noted Neuro: Awake, alert. Face symmetric. GCS 15. Physical Exam - Vital signs Vitals: Temp Pulse Resp BP Pulse Ox 98.1 F 95 16 116/65 98 03/30/20 14:30 03/30/20 14:30 03/30/20 14:30 03/30/20 14:30 03/30/20 14:30 Course - Re-evaluation Re-evalutation: 03/30/20 14:48 Patient presents with hip and buttock pain trochanteric bursitis versus postop hip implant pain versus hardware loosening less likely infection myositis osteomyelitis or septic hip. I spoke with Dr. Esposito and he has asked me to get some labs simply to make sure her white count and sed rate are normal and if so endorses discharge with pain control to follow-up with him on Friday. If she is not better or has abnormal labs I will admit her and he can see her tomorrow the hospital 03/30/20 15:49 White count ESR CRP negative Given small dose of Toradol and Lidoderm in the ED. Talked at length with patient and family they would like her to go home she would like to go home and feels safe. I ranged her hip again and only on active resistance/holding up her hip at the flexor position does she have pain. Doubt she needs to be admitted for aspiration. Will prescribe Lidoderm small dose tramadol as needed and she will follow-up with Blanche on Friday. I have discussed with the patient there likely diagnosis, aftercare plan, follow-up plans and my usual and customary return precautions. They verbalized understanding of this. - Vital Signs Vital signs: Temp Pulse Resp BP Pulse Ox 98.1 F 95 16 116/65 98 03/30/20 14:30 03/30/20 14:30 03/30/20 14:30 03/30/20 14:30 03/30/20 14:30 - Laboratory Result Diagrams: 03/30/20 14:57 03/30/20 14:57 Laboratory results interpreted by me: 03/30/20 03/30/20 14:57 14:57 Lymph % (Auto) 5.5 L [place] % (Auto) 0.7 L Absolute Lymphs (auto) 0.3 L Absolute Monos (auto) 0.0 L Seg Neutrophils % 93.5 H Sodium 133.6 L Glucose 194 H - Diagnostic Test Radiology reviewed: Image reviewed, Reports reviewed Discharge - Discharge Clinical Impression: Left hip pain Condition: Good Disposition: HOME, SELF-CARE Instructions: Bursitis ([facility]) Additional Instructions: No evidence of infection was found in the hip joint. Hardware was normal on x- ray Please use topical pain patches, nighttime tramadol as needed and [id number] Tylenol and naproxen. Dr. Esposito will see you on Friday. If you get worse before then in any way including fever worsening pain ability to walk please return the ER immediately. Prescriptions: Lidocaine [Lidoderm 5% (700 mg) Transdermal Patch] 1 patch TP DAILY #7 adh..patch Tramadol HCl 100 mg PO TIDP PRN #10 tablet PRN Reason: Referrals: IVANA ORTEGA MD [Primary Care Provider] - Follow up as needed ABIGAIL ESPOSITO MD [ACTIVE STAFF] - Follow up in 3-5 days
[2020-03-30 15:07] LABS: ABSOLUTE LYMPHOCYTES (AUTO) 0.3 10^3/uL (0.5-4.7); ABSOLUTE NEUT (AUTO) 4.8 10^3/uL (1.7-8.2); BASOPHILS % (AUTO) 0.2 % (0-2); EOSINOPHILS % (AUTO) 0.1 % (0-6); HEMATOCRIT 36.2 % (36.0-47.0); HEMOGLOBIN 12.7 g/dL (12.0-15.5); LYMPHOCYTES % (AUTO) 5.5 % (13-45); MEAN CORPUSCULAR HEMOGLOBIN 31.7 pg (27.0-33.4); MEAN CORPUSCULAR HGB CONC 35.1 g/dL (32.0-36.0); MEAN CORPUSCULAR VOLUME 90 fl (80-97); MONOCYTES % (AUTO) 0.7 % (3-13); PLATELET COUNT 318 10^3/uL (150-450); RED BLOOD COUNT 4.01 10^6/uL (3.72-5.28); RED CELL DISTRIBUTION WIDTH 13.3 % (11.5-14.0); SEGMENTED NEUTROPHILS % (AUTO) 93.5 % (42-78); TOTAL CELLS COUNTED % (AUTO) 100 %; WHITE BLOOD COUNT 5.1 10^3/uL (4.0-10.5)
--- NOTE | 2020-03-30 15:11 | RADIOLOGY REPORT (SQ) ---
EXAM DESCRIPTION: PELVIS AP IMAGES COMPLETED DATE/TIME: 03/30/2020 2:49 pm REASON FOR STUDY: hip inj L COMPARISON: 12/28/2019 NUMBER OF VIEWS: Two views TECHNIQUE: AP Pelvis LIMITATIONS: None. FINDINGS: MINERALIZATION: Normal. HIPS: Status post bilateral total hip arthroplasties without evidence of hardware fracture, perihardw are lucency or migration. The femoral heads appear to be well seated within the acetabular component s on this limited examination. No acute osseous injury. PELVIS AND SACRUM: No acute fracture or dislocation. No worrisome bone lesions. PUBIS AND ISCHIUM: No acute fracture. LOWER LUMBAR SPINE: No significant findings as visualized. SOFT TISSUES: No findings. OTHER: No other significant finding. IMPRESSION: Status post bilateral total hip arthroplasties without evidence of hardware complication . COMMENT: Pelvic fractures are often occult on plain radiographs. If strong clinical suspicion for f racture, recommend CT or MR. TECHNICAL DOCUMENTATION: JOB ID: [id number] [employer]- All Rights Reserved Reading location - IP/workstation name: [email or web address]
[2020-03-30 15:30] LABS: ANION GAP 9 (5-19); BLOOD UREA NITROGEN 14 mg/dL (7-20); CALCIUM 9.5 mg/dL (8.4-10.2); CARBON DIOXIDE 27 mmol/L (22-30); CHLORIDE 98 mmol/L (98-107); GLUCOSE 194 mg/dL (75-110); POTASSIUM 3.8 mmol/L (3.6-5.0)
[2020-03-30 15:35] LABS: C-REACTIVE PROTEIN < 5.0 mg/L (<10.0)
[2020-03-30 15:42] LABS: ERYTHROCYTE SEDIMENTATION RATE 48 mm/hr (0-30)
[2020-03-30] MEDS ORDERED: LIDOCAINE 5% (700 MG) TRANSDERMAL ADH..PATCH TP ONE (15:46)
[2020-03-30] MEDS ORDERED: KETOROLAC TROMETHAMINE INJ/PF 30 MG/1 ML SDV IV ONE (15:46)
[2020-03-30] MEDS ORDERED: OXYCODONE HCL IR 5 MG TABLET PO ONE (15:46)
[2020-03-30 16:10] VITALS: BP 144/73
== END 2020-03-30 16:25 | disposition home or self-care (01) ==
LOC: ER 14:13
DX: M25.552 Pain in left hip (principal); M54.5 Low back pain; Z88.0 Allergy status to penicillin
CPT/HCPCS: 99284; 96374; 36415; 85025; 85652; 86140; 80048; 72170; J1885; A9270 ×2